=== PATIENT | female | born 1960 | race Caucasian/White ===

== ENCOUNTER 2017-02-21 11:53 | Outpatient (CLI) | payer OTHER ==
[2017-02-21] MEDS ORDERED: Lidocaine 1% PF 5 ML VIAL ONE (12:52)
[2017-02-21] MEDS ORDERED: Gadobenate Dimeglumine 529 MG/1 ML (20ML VIAL) ONE (12:52)
[2017-02-21] MEDS ORDERED: EPINEPHrine 1 MG/ML AMP ONE (12:52)
[2017-02-21] MEDS ORDERED: Iopamidol 300 61% 100 ML VIAL FS ONE (12:52)
--- NOTE | 2017-02-21 15:18 | MRI ---
MRI OF THE RIGHT SHOULDER WITH INTRAARTICULAR CONTRAST: INDICATION: Right shoulder pain and possible rotator cuff tear or labral tear. COMPARISON: Right shoulder radiograph dated 02/21/17. TECHNIQUE: Multiplanar, multisequence MR images were obtained of the right shoulder following the intraarticular administration of dilute Gadolinium solution. Please see the separately dictated right shoulder art hrogram for details concerning the injection technique. FINDINGS: Mild motion artifact limit slightly limits image detail. There is a partial thickness low-grade articular surface tear involving the anterior supraspinatus at the footprint measuring approximately 5 x 8 mm. This involves slightly less than 50% of the tendon thickness. There is mild supraspinatus and infraspinatus tendonosis. There is fluid in the subacrom ial subdeltoid bursa. The biceps anchor and long head of the biceps tendon appears within normal mead its. No discrete labral tear is evident. There is mild diffuse chondrosis involving the glenohumera l joint. There is mild AC joint osteoarthrosis. No definite muscular atrophy is evident. The infer ior glenohumeral labral ligamentous complex appears within normal limits. IMPRESSION: 1. Low-grade partial-thickness articular surface tear involving the anterior supraspinatus at the fo otprint involving less than 50% of the tendon thickness. 2. Mild supraspinatus and infraspinatus tendonosis. 3. Mild amount of fluid in the subacromial subdeltoid space may reflect changes of mild bursitis. 4. Mild acromioclavicular joint osteoarthrosis. POS: [facility]
--- NOTE | 2017-02-21 15:46 | RAD ---
RIGHT SHOULDER ARTHROGRAM 02/21/17 INDICATION: Concern for labral tear, rotator cuff tear with right shoulder pain. TECHNIQUE: Informed consent was obtained. Preprocedure health concierge images were obtained. Site overlying the right shou lder is prepped and draped and in the usual sterile fashion. Buffered 1% lidocaine was administered o verlying subcutaneous tissues. Under fluoroscopic guidance, I personally placed a 22 gauge spinal ne edle in patient's glenohumeral joint and injected with a dilute gadolinium solution. The patient tole rated the injection without difficulty. Total fluoroscopic time was 0.3 minutes with a total exposure of 31.1 uGy*m2. Chain Offbearer images demonstrate mild glenohumeral and AC joint osteoarthrosis. No acute fracture or subluxat ion is evident. The visualized right lung is clear. IMPRESSION: Successful right shoulder arthrogram. POS: [facility]
== END 2017-02-21 11:54 | disposition home or self-care (01) ==
LOC: RAD 11:53
PROVIDERS: ATTEND Orthopaedic Surgery
DX: M75.101 Unspecified rotator cuff tear or rupture of right shoulder, not specified as traumatic (principal); M25.511 Pain in right shoulder; S43.421A Sprain of right rotator cuff capsule, initial encounter; M19.011 Primary osteoarthritis, right shoulder; M75.91 Shoulder lesion, unspecified, right shoulder
CPT/HCPCS: 23350; A9579; J0171; J2001

== ENCOUNTER 2022-12-01 08:32 | Outpatient (CLI) | payer BC ==
[2022-12-01 09:42] LABS: #Basophils 0.1 10x3/uL (0.0-0.2); #Eosinphils 0.2 10x3/uL (0.0-0.5); #Monocytes 0.7 10x3/uL (0.0-1.1); #Neutrophils 1.5 10x3/uL (1.5-8.4); %Basophils 2.1 % (0.0-2.0); %Lymphocytes 35.6 % (18.0-47.0); %Monocytes 17.4 % (0.0-10.0); %Neutrophils 40.6 % (40.0-75.0); Hematocrit 33.8 % (34.9-44.5); Mean Corpuscular HGB CONC 29.6 g/dL (32.0-36.0); Mean Corpuscular Hemoglobin 23.9 pg (27.0-33.0); Mean Corpuscular Volume 80.7 fl (81.6-98.3); Mean Platelet Volume 9.5 fl (7.4-10.4); Platelet Count 349 10x3/uL (150-450); RBC Distribution Width 18.1 % (11.5-14.5); Red Blood Cell (RBC) Count 4.19 10x6/uL (3.90-5.03); White Blood Cell (WBC) Count 3.8 10x3/uL (3.5-10.5)
[2022-12-01 10:03] LABS: ALT (SGPT) 25 U/L (8-55); AST (SGOT) 25 U/L (5-34); Albumin 4.3 g/dL (3.4-4.8); Alkaline Phosphatase 102 U/L (40-110); Anion Gap 16 mmol/L (10-20); BUN (Urea Nitrogen) 6 mg/dL (9.8-20.1); Bilirubin, Total 0.5 mg/dL (0.2-1.2); Calc. Creatinine Clearance 0 mL/min (70-130); Calcium 9.2 mg/dL (7.8-10.44); Carbon Dioxide 23 mmol/L (23-31); Chloride 106 mmol/L (98-107); Estimated GFR 100; Globulin 2.4 g/dL (2.4-3.5); Glucose 99 mg/dL (80-115); Potassium 4.7 mmol/L (3.5-5.1); Protein, Total 6.7 g/dL (5.8-8.1); Sodium 140 mmol/L (136-145)
== END 2022-12-01 08:33 | disposition home or self-care (01) ==
LOC: LABBT 08:32
PROVIDERS: ATTEND Surgery
DX: Z01.818 Encounter for other preprocedural examination (principal); K64.9 Unspecified hemorrhoids
CPT/HCPCS: 80053; 85025; 93005; 93010

== ENCOUNTER 2022-12-03 05:55 | Day surgery (SDC) | payer BC ==
[2022-12-01 08:52] VITALS: BMI 29.5
[2022-12-03] MEDS ORDERED: Fentanyl 250 MCG/5 ML VIAL ONE (07:37)
[2022-12-03] MEDS ORDERED: Lidocaine 2% PF 5 ML VIAL ONE (07:39)
[2022-12-03] MEDS ORDERED: Bacitracin Zinc Ointment 30 gm TUBE ONE (07:39)
[2022-12-03] MEDS ORDERED: EPINEPHrine 1 MG/ML AMP ONE (07:39)
[2022-12-03] MEDS ORDERED: Bupivacaine 0.25% HCL 30 ML VIAL ONE (07:39)
[2022-12-03] MEDS ORDERED: cefOXitin 2 GM VIAL ONE (08:03)
[2022-12-03] MEDS ORDERED: Sodium Chloride 0.9% 100 ML ONE (08:03)
[2022-12-03] MEDS ORDERED: SUGAMMADEX SODIUM 200 MG/2 ML VIAL ONE (08:07)
[2022-12-03] MEDS ORDERED: Lidocaine 1% PF 5 ML VIAL ONE (08:09)
[2022-12-03] MEDS ORDERED: PROPOFOL 200 MG/20 ML VIAL ONE (08:09)
[2022-12-03] MEDS ORDERED: Dexamethasone 20 MG/5 ML VIAL ONE (08:09)
[2022-12-03] MEDS ORDERED: Rocuronium Bromide 10 MG/ML (10ML VIAL) ONE (08:09)
[2022-12-03] MEDS ORDERED: Ondansetron PF 4 MG/2 ML Vial ONE (08:09)
[2022-12-03] MEDS ORDERED: fentaNYL PF 100 MCG/2 ML SYRINGE ONE (09:10)
[2022-12-03] MEDS ORDERED: Acetaminophen/Codeine 30-300mg Tablet ONE (10:04)
== END 2022-12-03 11:10 | disposition home or self-care (01) ==
LOC: SDC 05:55
PROVIDERS: ATTEND Surgery
PROC: 06BY3ZC Excision of Hemorrhoidal Plexus, Percutaneous Approach (ICD-10-PCS; principal; 2022-12-03)
DX: K64.2 Third degree hemorrhoids (principal); K64.8 Other hemorrhoids; F41.9 Anxiety disorder, unspecified; F32.A Depression, unspecified; M06.9 Rheumatoid arthritis, unspecified; K21.9 Gastro-esophageal reflux disease without esophagitis; D64.9 Anemia, unspecified; E55.9 Vitamin D deficiency, unspecified; E03.9 Hypothyroidism, unspecified; Z87.59 Personal history of other complications of pregnancy, childbirth and the puerperium; Z90.710 Acquired absence of both cervix and uterus; Z98.890 Other specified postprocedural states; Z98.84 Bariatric surgery status; Z88.2 Allergy status to sulfonamides; Z88.1 Allergy status to other antibiotic agents; Z88.5 Allergy status to narcotic agent; Z88.8 Allergy status to other drugs, medicaments and biological substances; Z79.899 Other long term (current) drug therapy
CPT/HCPCS: 88304; J0171; J0694; J1100; J2001; J2405; J2704; J3010; J3490; S0020

== ENCOUNTER 2023-09-08 15:36 | Outpatient (CLI) | payer BC ==
[2023-09-08 16:19] LABS: #Basophils 0.06 10x3/uL (0.0-0.2); #Eosinphils 0.12 10x3/uL (0.0-0.5); #Monocytes 0.57 10x3/uL (0.0-1.1); #Neutrophils 1.46 10x3/uL (1.5-8.4); %Basophils 1.5 % (0.0-2.0); %Lymphocytes 44.9 % (18.0-47.0); %Monocytes 14.2 % (0.0-10.0); %Neutrophils 36.4 % (40.0-75.0); Hematocrit 40.5 % (34.9-44.5); Mean Corpuscular HGB CONC 34.6 g/dL (32.0-36.0); Mean Corpuscular Hemoglobin 36.6 pg (27.0-33.0); Mean Platelet Volume 9.9 fL (7.4-10.4); Platelet Count 256 10x3/uL (150-450); RBC Distribution Width 11.7 % (11.5-14.5); Red Blood Cell (RBC) Count 3.82 10x6/uL (3.90-5.03)
[2023-09-08 16:39] LABS: ALT (SGPT) 28 U/L (8-55); AST (SGOT) 22 U/L (5-34); Albumin 4.1 g/dL (3.4-4.8); Alkaline Phosphatase 82 U/L (40-110); Anion Gap 14 mmol/L (10-20); BUN (Urea Nitrogen) 13 mg/dL (9.8-20.1); Bilirubin, Total 0.4 mg/dL (0.2-1.2); Calc. Creatinine Clearance 0 mL/min (70-130); Calcium 9.3 mg/dL (7.8-10.44); Carbon Dioxide 23 mmol/L (23-31); Chloride 107 mmol/L (98-107); Estimated GFR 100; Globulin 2.3 g/dL (2.4-3.5); Glucose 131 mg/dL (80-115); Potassium 4.2 mmol/L (3.5-5.1); Protein, Total 6.4 g/dL (5.8-8.1); Sodium 140 mmol/L (136-145)
== END 2023-09-08 15:37 | disposition home or self-care (01) ==
LOC: LABBT 15:36
PROVIDERS: ATTEND Surgery
DX: Z01.818 Encounter for other preprocedural examination (principal); K43.2 Incisional hernia without obstruction or gangrene; K44.0 Diaphragmatic hernia with obstruction, without gangrene
CPT/HCPCS: 80053; 85025; 93005; 93010